=== PATIENT | female | born 1960 | race Caucasian/White ===

== ENCOUNTER → 2020-10-03 10:48 | Outpatient (CLI) | payer BC, SELFPAY ==
--- NOTE | ~2020-10-03 | MR_ITS ---
EXAMINATION: MR foot RT wo/w con DATE: 10/03/2020 11:52 INDICATION: Metatarsalgia of the right foot. Lesion of plantar nerve of the right foot. TECHNIQUE: Magnetic resonance imaging (MRI) of the right foot was performed without and with 17 mm Mu ltiHance intravenous contrast. Sequences included sagittal STIR FSE and T1-weighted FSE and short-axi s and long-axis T1-weighted FSE and T2-weighted FS FSE. Postcontrast sequences included short-axis an d long-axis T1-weighted FS FSE. COMPARISON: None FINDINGS: Bone alignment is normal. No fracture. There is severe osteoarthritis of first tarsometatar abelino joint and mild osteoarthritis of second-fifth tarsometatarsal joints. There is mild osteoarthriti s of first metatarsophalangeal joint and some of the interphalangeal joints. There is enhancing synov itis of first and second metatarsophalangeal joints. There is a skin marker dorsal to the third and f ourth metatarsals. There is a 2.5 x 0.9 x 1.4 cm multiloculated ganglion cyst between the second and third metatarsophalangeal joints. There is no Chadwick neuroma. The musculature is normal. IMPRESSION: 1. 2.5 x 0.9 x 1.4 cm multiloculated ganglion cyst between the second and third metatarsophalangeal j oints. 2. Polyarticular osteoarthritis. 3. Enhancing synovitis at the first and second metatarsophalangeal joints. Reviewed, dictated and finalized at location A. R ROLLER IMPRESSION: 1. 2.5 x 0.9 x 1.4 cm multiloculated ganglion cyst between the second and third metatarsophalangeal joints. 2. Polyarticular osteoarthritis. 3. Enhancing synovitis at the first and second metatarsophalangeal joints.
[2020-10-03 11:13] LABS: Estimated Glomerular Filt Rate > 60
== END ==
PROVIDERS: PCP Registered Nurse; Visit Provider Podiatrist Foot & Ankle Surgery
DX: G57.61 Lesion of plantar nerve, right lower limb (principal); M67.471 Ganglion, right ankle and foot; M19.071 Primary osteoarthritis, right ankle and foot; M65.9 Synovitis and tenosynovitis, unspecified
CPT/HCPCS: 73720; A9577

== ENCOUNTER → 2021-06-14 09:09 | Outpatient (CLI) | payer OTHER, SELFPAY ==
--- NOTE | ~2021-06-14 | MR_ITS ---
EXAMINATION: MR knee LT wo con DATE: 06/14/2021 09:52 INDICATION: Chronic left knee pain TECHNIQUE: Magnetic resonance imaging (MRI) of the left knee was performed without intravenous contra st. Sequences included coronal PD-weighted FSE, coronal PD-weighted FS FSE, sagittal T2-weighted FSE , sagittal PD-weighted FS FSE and axial PD weighted fat saturated FSE. COMPARISON: None. FINDINGS: Medial compartment: Longitudinal horizontal tear extending to the inferior articular surface at the middle third of the p osterior horn of the medial meniscus. Partial-thickness cartilage loss involving greater than 50% the cartilage thickness, in places likely full-thickness with underlying cortical irregularity and mild subarticular edema along the anterior weightbearing medial femoral condyle and at the anteromedial as pect of the medial tibial plateau. A severe partial thickness cartilage loss at the central weightbea ring medial femoral condyle. Lateral compartment: Lateral meniscus is normal. Articular cartilage is normal. Patellofemoral compartment: Deep full/near full-thickness chondral ulceration with tiny focus of subarticular edema at the cephal ad aspect of the medial patellar facet extending to the apical ridge. Chondral fissuring with some un derlying cortical irregularity at the inferior and medial margins of the medial trochlea. Ligaments and tendons: Anterior and posterior cruciate ligaments are normal. The fibular collateral ligament complex is norm al. There is mild thickening and mild increased signal along the proximal medial collateral ligament with small amount of fluid signal extending along both its deep and superficial margins consistent wi th recent acute low to moderate grade sprain. Patellar and distal quadriceps tendinopathy. The visual ized medial and lateral hamstring tendons as well as the iliotibial band are normal. Fluid: Small to moderate-sized left knee joint effusion. There are 5 mm and 6 mm loose osteochondral bodies within a ganglion versus para meniscal cyst extending for 2.8 cm from medial to lateral along the per iphery of the posterior horn of the medial meniscus which measures up to 1.5 x 0.8 cm maximal orthogo nal dimensions. No intra-articular loose osteochondral bodies identified. There is synovitis within a 4.2 x 1.8 x 1.2 cm Cazares's cyst which may be partially ruptured with small amount of edema extending inferiorly along the fat along the medial margin of the medial head of the gastrocnemius. Osseous/other: Normal marrow signal aside from previous noted mild subarticular edema. No fracture or pathologic mar row replacing process. IMPRESSION: 1. Likely acute low to moderate grade sprain of the proximal medial collateral ligament. 2. Longitudinal horizontal tear at the posterior horn of the medial meniscus. 3. Mild to moderate medial and mild patellofemoral compartment osteoarthritis, both with regions of h igh-grade chondromalacia. 4. Small to moderate-sized left knee joint effusion and moderate-sized Cazares's cyst. Reviewed, dictated and finalized at location A. IMPRESSION: 1. Likely acute low to moderate grade sprain of the proximal medial collateral ligament. 2. Longitudinal horizontal tear at the posterior horn of the medial meniscus. 3. Mild to moderate medial and mild patellofemoral compartment osteoarthritis, both with regions of high-grade chondromalacia. 4. Small to moderate-sized left knee joint effusion and moderate-sized Cazares's cyst.
== END ==
PROVIDERS: PCP Internal Medicine; Visit Provider Internal Medicine
DX: M17.12 Unilateral primary osteoarthritis, left knee (principal); M25.462 Effusion, left knee; M94.262 Chondromalacia, left knee; S83.242A Other tear of medial meniscus, current injury, left knee, initial encounter
CPT/HCPCS: 73721

== ENCOUNTER → 2021-07-04 15:31 | Outpatient (CLI) | payer OTHER, SELFPAY ==
--- NOTE | ~2021-07-04 | XR_ITS ---
EXAMINATION: XR chest 2V DATE: 07/04/2021 15:43 INDICATION: Encounter for preoperative cardiovascular clearance TECHNIQUE: frontal and lateral views of the chest were obtained. COMPARISON: Chest radiograph dated 03/08/2019 FINDINGS: The lungs remain clear with no focal airspace opacities, pulmonary edema, pleural effusion or pneumot horax. The cardiomediastinal silhouette is normal. Moderate thoracic spondylosis. IMPRESSION: 1. No acute cardiopulmonary disease. Reviewed, dictated and finalized at location A.
== END ==
PROVIDERS: PCP Internal Medicine; Visit Provider Internal Medicine
DX: Z01.810 Encounter for preprocedural cardiovascular examination (principal); M47.814 Spondylosis without myelopathy or radiculopathy, thoracic region
CPT/HCPCS: 71046

== ENCOUNTER 2021-10-08 09:01 | Outpatient (CLI) | payer OTHER, SELFPAY ==
--- NOTE | ~2021-10-08 | MR_ITS ---
EXAMINATION: MR brain/brain stem wo con DATE: 10/08/2021 10:11 INDICATION: Memory loss of unknown cause. TECHNIQUE: Magnetic resonance imaging (MRI) of the brain and brainstem was performed without intraven ous contrast. Sequences included sagittal and axial T1-weighted FSE, axial diffusion-weighted FS EPI, axial T2*-weighted GRE, axial T2-weighted FLAIR Propeller, and axial T2-weighted Propeller. Apparent diffusion coefficient (ADC) maps were created. COMPARISON: None. FINDINGS: There is no intracranial hemorrhage, acute infarction, or abnormal intracranial mass lesion . The ventricles are normal in size. The paranasal sinuses are clear. There are likely changes of ocu lar lens replacement surgeries. The mastoid air cells are normal. IMPRESSION: 1. Normal brain. Reviewed, dictated and finalized at location A. UCTION FINISHER IMPRESSION: 1. Normal brain.
--- NOTE | ~2021-10-08 | US_ITS ---
EXAMINATION: US carotid duplex BI DATE: 10/08/2021 09:43 INDICATION: Dizziness. Memory loss. Carotid atherosclerosis on prior cervical spine radiographs. TECHNIQUE: Grayscale, color Doppler, and pulsed Doppler images of the cervical carotid arteries were obtained. The degree of vessel stenosis is placed in one of the following categories: normal, <50%, 5 0-69%, >=70% but less than near-occlusion, near-occlusion, or total occlusion. Note that percent sten osis relative to normal distal artery lumen diameter is indirectly measured from velocity measurement s as described by Bernardo, et al. Radiology 2003; [id number]:[id number]. COMPARISON: None. FINDINGS: RIGHT: The right common carotid artery (CCA) peak systolic velocity (PSV) is 87 cm/s. The right internal car otid artery (ICA) PSV is 53 cm/s. The right ICA end-diastolic velocity (EDV) is 23 cm/s. The right IC A/CCA PSV ratio is 0.6. Grayscale and color Doppler images yield an estimate of <50% diameter reducti on from plaque in the ICA. The external carotid artery (ECA) PSV is 68 cm/s. There is antegrade flow in the right vertebral artery. LEFT: The left CCA PSV is 88 cm/s. The left ICA PSV is 100 cm/s. The left ICA EDV is 44 cm/s. The left ICA/ CCA PSV ratio is 1.1. Grayscale and color Doppler images yield an estimate of <50% diameter reduction from plaque in the ICA. The ECA PSV is 98 cm/s. There is antegrade flow in the left vertebral artery . IMPRESSION: 1. <50% stenosis in the right internal carotid artery. 2. <50% stenosis in the left internal carotid artery. Reviewed, dictated and finalized at location H. Y APPLICATOR
== END 2021-10-08 09:02 | disposition home or self-care (01) ==
LOC: ANHIMG 09:07
PROVIDERS: PCP Internal Medicine; Visit Provider Internal Medicine
DX: I65.23 Occlusion and stenosis of bilateral carotid arteries (principal)
CPT/HCPCS: 70551; 93880

== ENCOUNTER → 2021-11-08 11:48 | Outpatient (CLI) | payer OTHER, SELFPAY ==
--- NOTE | ~2021-11-08 | CT_ITS ---
EXAMINATION: CT cervical spine wo con DATE: 11/08/2021 12:06 INDICATION: Neck pain. Dizziness. TECHNIQUE: Computed tomography (CT) of the cervical spine was performed without intravenous contrast. Automated exposure control and iterative reconstruction technique were employed. The dose-length pro duct was 247.07 mGy-cm. COMPARISON: None FINDINGS: There is 5 degrees dextrocurvature of cervical spine. There is mild chronic anterior wedgin g of C4 vertebral body. Intervertebral disc heights are normal. The following disc levels are specifi janell discussed: C2-C3: There is no uncovertebral joint osteoarthritis. There is no facet joint osteoarthritis. There is no neural foraminal stenosis. There is no central canal stenosis. C3-C4: There is no uncovertebral joint osteoarthritis. There is moderate left facet joint osteoarthri tis. There is no neural foraminal stenosis. There is no central canal stenosis. C4-C5: There is no uncovertebral joint osteoarthritis. There is no facet joint osteoarthritis. There is no neural foraminal stenosis. There is no central canal stenosis. C5-C6: There is no uncovertebral joint osteoarthritis. There is no facet joint osteoarthritis. There is no neural foraminal stenosis. There is mild central canal stenosis. C6-C7: There is no uncovertebral joint osteoarthritis. There is moderate left facet joint osteoarthri tis. There is no neural foraminal stenosis. There is mild central canal stenosis. C7-T1: There is no uncovertebral joint osteoarthritis. There is moderate and severe left facet joint osteoarthritis. There is mild left neural foraminal stenosis. There is no central canal stenosis. IMPRESSION: 1. Mild cervical spondylosis. Reviewed, dictated and finalized at location A. R OPERATOR
== END ==
PROVIDERS: Visit Provider Internal Medicine
DX: R42 Dizziness and giddiness (principal); M47.812 Spondylosis without myelopathy or radiculopathy, cervical region
CPT/HCPCS: 72125

== ENCOUNTER 2022-02-27 11:10 | Outpatient (CLI) | payer OTHER, SELFPAY ==
[2022-02-27 13:34] LABS: Basophils Absolute Auto 0.1 K/mm3 (0.0-0.1); Eosinophils Absolute Auto 0.1 K/mm3 (0-0.3); Eosinophils Percent Auto 1.8 % (0-4.4); Hematocrit 44.3 % (37.0-47.0); Hemoglobin 14.7 g/dL (12.0-15.0); Immature Granulocyte Absolute 0.01 K/mm3 (0.00-0.031); Immature Granulocyte Percent A 0.2 % (0-0.5); Lymphocytes Absolute Auto 1.39 K/mm3 (0.9-3.2); Lymphocytes Percent Auto 28.3 % (18.3-44.2); Mean Corpuscular HGB Conc 33.2 g/dl (32-36); Mean Corpuscular Hemoglobin 32.4 pg (26-34); Mean Corpuscular Volume 97.6 fl (80-100); Mean Platelet Volume 8.6 fl (7.4-10.4); Monocytes Absolute Auto 0.6 K/mm3 (0.1-0.6); Monocytes Percent Auto 12.8 % (2.6-8.5); Neutrophils Absolute Auto 2.8 K/mm3 (1.3-6.7); Neutrophils Percent Auto 55.9 % (45.5-73.1); Platelet Count Result 283 k/mm3 (150-375); Red Blood Count 4.54 M/mm3 (4.2-5.4); Red Cell Distribution Width 12.1 % (11.5-14.5); White Blood Count 4.9 K/mm3 (4.5-10.0)
[2022-02-27 13:43] LABS: Albumin Level 4.7 g/dL (3.5-5.1); Anion Gap 11 mmol/L (8-16); Blood Urea Nitrogen 10 mg/dL (7-17); Calcium 9.7 mg/dL (8.4-10.2); Carbon Dioxide 30 mmol/L (22-30); Chloride 99 mmol/L (98-107); Estimated Glomerular Filt Rate > 60; Glucose 97 mg/dL (65-110); Potassium 5.3 mmol/L (3.4-5.0); Sodium 140 mmol/L (137-145); Urine Cotinine NEGATIVE
[2022-02-27 13:47] LABS: Hemoglobin A1C 5.5 % (<5.7)
== END 2022-02-27 11:11 | disposition home or self-care (01) ==
PROVIDERS: PCP Internal Medicine; Visit Provider Orthopaedic Surgery
DX: Z01.812 Encounter for preprocedural laboratory examination (principal); M17.11 Unilateral primary osteoarthritis, right knee
CPT/HCPCS: 80048; 80307; 82040; 83036; 85025; 86850; 86900; 86901; 87070

== ENCOUNTER 2022-03-06 01:21 | Day surgery (SDC) | payer OTHER, SELFPAY ==
[2022-02-27 11:28] VITALS: BMI 29.8
--- NOTE | 2022-02-27 12:06 | PC.NURSE ---
Report to the Outpatient Waiting Room, entrance under the green pavilion located off [facility], at time __1000 AM on date __03/06/22 . OR Time: _1200 PM . - You and your visitor will be asked a series of questions to screen for COVID 19 for your protection. - Only one visitor is allowed at this time. - The patient visitor is requested to leave or wait in car when not with patient. - A mask is required within the hospital. Patients may have clear liquids (water, carbonated beverages, clear teas, apple juice) until 3 hours prior to surgery with a maximum of 20 ounces. - No food from midnight until time of surgery - Infants may have breast milk until 4 hours before surgery, formula 6 hours prior to surgery. - Children will be allowed to drink immediately following surgery. If applicable, please bring a bottle or sippy cup to assist with drinking. Juice, water, soda, and popsicles are readily available. For infants on formula, please bring formula the day of surgery. Pacifiers are allowed. Take the following medications with a SIP of water the morning of surgery: ___ALPRAZOLAM,BUPROPION,PROPRANOLOL,AND VENLAFAXINE Medications to discontinue per physician ___ALL VITAMINS AND SUPPLEMENTS 3 DAYS PRE OP Date to take last dose___03/02/22 Please no make-up, nail bermudian, hairspray, perfume, deodorant, or body powder the day of surgery. No jewelry (including any body piercings) or valuables the day of surgery, leave them at home. Please take a shower or bath the night before, or the morning of, surgery with an antibacterial soap. Wear comfortable, loose fitting clothing. Children are encouraged to wear pajamas. - Jewelry must be removed prior to entering the operating room. Rings and piercings that are not removed may be cut off. - The hospital will not accept responsibility for valuables. - Please leave all valuables, including medications, at home the day of surgery. If you are going home after surgery, a licensed clamp truck driver must drive you home. - NO public transportation without another adult. - We recommend that an adult stay with you for 24 hours following discharge. - We also recommend that you do not drive, make important decision, drink alcoholic beverages, or take any drugs that were not prescribed by your health care provider for at least 24 hours after your discharge time. For Pediatric surgeries, we recommend two adults accompany the child home (only one inside the building at this time). Follow any additional instructions given to you from your surgeon. If you or anyone in your household have experienced Covid symptoms in the past week, please notify your surgeon or the nurse liaison at the phone number below for possible testing. VERBAL AND WRITTEN instructions given toPATIENT and asked if any additional questions and then verbalized understanding. Patient advised to call surgeon office or pre surgery nurse liaison [phone] if any additional questions.
[2022-02-27 12:52] VITALS: BP 124/74; PULSE 71; RESP 18; TEMP 36.7; O2SAT 98
--- NOTE | 2022-03-04 11:29 | PM.IMHP ---
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 Patient has severe arthritis medial compartment of the right knee. She has had previous arthroscopies done in the right knee in 2020. Unfortunately she did not get much relief from the arthroscopies. Her arthritis has progressed she has [id number] medial compartment. She has been taking Celebrex 200 mg daily without improvement of her symptoms. She had cortisone injection in November of this year which gave her only partial relief for about 2 weeks. She feels this point she is having significant pain in the right knee and is ready to proceed with surgery. She is felt to be good candidate for partial knee replacement and she presents today for that. Chief Complaint: Right knee medial compartment osteoarthritis. Review of Systems Review of Systems: All systems reviewed & are unremarkable except as noted in HPI and below PMFSH Social History Social History Smoking packs per day: 0.25 Smoking cigarettes per day: 5.0 Years smoked: 15 Smoking pack-years: 3.75 Smoking status: Former smoker Tobacco type: cigarettes Smoking end date: 10/13/18 Additional smoking assessment comments: DENIES ANY FORM OF TOBACCO USE Spiritual care concerns: No Meds Home Medications and Allergies Home Medications Medication Instructions Recorded Confirmed Type albuterol sulfate [Ventolin HFA] 2 puff INHALATION QID PRN 02/27/22 02/27/22 History alprazolam 0.5 mg PO PRN PRN 02/27/22 02/27/22 History atorvastatin 10 mg PO HS 02/27/22 02/27/22 History bupropion HCl 300 mg PO QAM 02/27/22 02/27/22 History celecoxib 200 mg PO DAILY 02/27/22 02/27/22 History cholecalciferol (vitamin D3) 50 mcg PO DAILY 02/27/22 02/27/22 History diclofenac sodium 4 g TOPICAL QID 02/27/22 02/27/22 History fluticasone propionate [Flovent 1 puff INHALATION BID 02/27/22 02/27/22 History HFA] meclizine 25 mg PO PRN PRN 02/27/22 02/27/22 History montelukast 10 mg PO DAILY 02/27/22 02/27/22 History omega-3 fatty acids [Fish Oil] 1,000 mg PO DAILY 02/27/22 02/27/22 History omeprazole 40 mg PO DAILY 02/27/22 02/27/22 History oxycodone-acetaminophen 1 tablet PO Q12H 02/27/22 02/27/22 History phentermine 37.5 mg PO DAILY 02/27/22 02/27/22 History propranolol 20 mg PO TID 02/27/22 02/27/22 History trazodone 150 mg PO HS 02/27/22 02/27/22 History venlafaxine 75 mg PO DAILY 02/27/22 02/27/22 History venlafaxine 150 mg PO DAILY 02/27/22 02/27/22 History Allergies Allergy/AdvReac Type Severity Reaction Status Date / Time No Known Allergies Allergy Unverified 02/27/22 11:29 Exam Narrative: 61-year-old female alert pleasant. She is 5 ft 6 in tall and 185 lb. Right knee range motion is from 2-155 degrees. She has moderate effusion. She has mild laxity to valgus stress in the right knee. Paris's showed 1+ laxity with solid endpoint. Hip range of motion is full without discomfort. Normal quad strength. Moderately severe tenderness over the medial joint line. 2+ dorsalis pedis and posterior artery pulse palpable. Normal sensation right lower extremity. No edema in lower extremity. Resp: Auscultation: clear to auscultation bilaterally Cardio: Rate: regular rate Rhythm: regular rhythm Assessment and Plan Additional Plan 61-year-old female who has severe medial compartment osteoarthritis. Again she feels this is bothering her on a regular basis and is ready to proceed with surgery. Surgical procedure well as the risks and complications were discussed in detail all questions were answered and we will proceed. Patient will see her primary care doctor for pre-surgical clearance. She will avoid any aspirin or ibuprofen products 1 week prior to surgery. She will continue with her Celebrex up and through the time fishman
[2022-03-06] VITALS (12 sets, daily range): BP systolic 99–132; BP diastolic 55–77; PULSE 88–114; RESP 12–98; TEMP 36.5–36.8; O2SAT 92–100
--- NOTE | ~2022-03-06 | XR_ITS ---
EXAMINATION: XR surgery orthopedic DATE: 03/06/2022 16:20 INDICATION: Right knee medial unicompartmental arthroplasty. TECHNIQUE: 2 fluoroscopic images of the right knee were obtained during procedure performed by Dr. Lion lenz. Radiologist was not present for the imaging or procedure. The amount of fluoroscopy time used during this procedure was 0.8 minutes. COMPARISON: None. FINDINGS: Images demonstrate osteotomy at the medial tibial plateau with placement of a trial tibial tray. A gu dann pin is seen in the underlying medial tibial plateau. Expected small amount of intra-articular gas . No fracture identified. IMPRESSION: 1. Fluoroscopy utilized during a medial unicompartmental arthroplasty of the right knee. See procedur e note for further detail. Reviewed, dictated and finalized at location B. IMPRESSION: 1. Fluoroscopy utilized during a medial unicompartmental arthroplasty of the ri ght knee. See procedure note for further detail.
--- NOTE | ~2022-03-06 | XR_ITS ---
EXAMINATION: XR knee RT 2V DATE: 03/06/2022 16:17 CDT INDICATION: Right partial knee arthroplasty TECHNIQUE: 2 views right knee FINDINGS: There is a right medial unicompartmental knee arthroplasty in expected position. Subcutane ous gas with fluid and air in the joint are consistent with recent surgery. No evidence of periprosth etic fracture. IMPRESSION: 1. Recent right medial unicompartmental knee arthroplasty. Reviewed, dictated and finalized at location A.
[2022-03-06] MEDS: LACTATED RINGERS 1,000 ML 30 ML IV CONT ×2 (10:50→16:01)
--- NOTE | 2022-03-06 11:24 | WPDANESEPPF ---
Anes - Initial Pre Proc Eval Procedure: Operation Date: 03/06/22 12:00 Proposed Procedures p Right [place] Partial Knee Arthroplasty versus Possible Total Knee Arthroplasty - Adam Morrison MD Date/Time: 03/06/22 11:24 Surgeon: Adam Morrison MD Pre Op Diagnosis: Right Knee Medial Compartment Osteoarthritis Patient Data Age: 61 Gender: F Height: 1.68 m Weight: 83.8 kg Last Vital Signs Temp 36.7 C 02/27/22 12:52 Pulse 71 02/27/22 12:52 Resp 18 02/27/22 12:52 BP 124/74 02/27/22 12:52 Pulse Ox 98 02/27/22 12:52 O2 Del Method Room Air 02/27/22 12:52 Allergies Allergy/AdvReac Type Severity Reaction Status Date / Time No Known Allergies Allergy Unverified 03/06/22 10:33 Home Medications Medication Instructions Recorded Confirmed Type albuterol sulfate 90 mcg/actuation 2 puff inhalation QID PRN 02/27/22 03/06/22 History aerosol inhaler (Ventolin HFA) Shortness Of Breath alprazolam 0.5 mg tablet 0.5 mg PO PRN PRN Anxiety 02/27/22 03/06/22 History atorvastatin 20 mg tablet 10 mg PO HS 02/27/22 03/06/22 History bupropion HCl 300 mg 24 hr tablet, 300 mg PO QAM 02/27/22 03/06/22 History extended release celecoxib 200 mg capsule 200 mg PO DAILY 02/27/22 03/06/22 History cholecalciferol (vitamin D3) 50 50 mcg PO DAILY 02/27/22 03/06/22 History mcg (2,000 unit) tablet diclofenac sodium 1 % topical gel 4 g topical QID 02/27/22 03/06/22 History fluticasone propionate 110 1 puff inhalation BID 02/27/22 03/06/22 History mcg/actuation HFA aerosol inhaler (Flovent HFA) meclizine 25 mg tablet 25 mg PO PRN PRN Dizziness 02/27/22 03/06/22 History montelukast 10 mg tablet 10 mg PO DAILY 02/27/22 03/06/22 History omega-3 fatty acids 1,000 mg PO DAILY 02/27/22 03/06/22 History omeprazole 40 mg capsule,delayed 40 mg PO DAILY 02/27/22 03/06/22 History release oxycodone-acetaminophen 5 mg-325 1 tablet PO Q12H PAIN 02/27/22 03/06/22 History mg tablet phentermine 37.5 mg tablet 37.5 mg PO DAILY 02/27/22 03/06/22 History propranolol 20 mg tablet 20 mg PO TID TREMORS 02/27/22 03/06/22 History trazodone 150 mg tablet 150 mg PO HS 02/27/22 03/06/22 History venlafaxine 150 mg 150 mg PO DAILY 02/27/22 03/06/22 History capsule,extended release 24 hr venlafaxine 75 mg capsule,extended 75 mg PO DAILY 02/27/22 03/06/22 History release 24 hr Patient hx anesthesia problems: none Family hx anesthesia problems: none Results Review: All pre-operative results and documents have been reviewed as part of the pre-operative evaluation. [facility] Past Medical History Medical History (Updated 03/06/22 @ 11:25 by Valentín Cannon MD) Asthma Obesity Surgical History Surgical History (Updated 03/06/22 @ 11:25 by Valentín Cannon MD) H/O arthroscopic knee surgery History of shoulder surgery Social History Social History Smoking packs per day: 0.25 Smoking cigarettes per day: 5.0 Years smoked: 15 Smoking pack-years: 3.75 Smoking status: Former smoker Tobacco type: cigarettes Smoking end date: 10/13/18 Additional smoking assessment comments: DENIES ANY FORM OF TOBACCO USE Living arrangements: with family Spiritual care concerns: No Anes - Eval Final PreProcedure Day of Procedure 03/06/22 11:24 Patient weight: obese Heart: regular rate and rhythm Lungs: clear to auscultation Airway: Mallampati scale class II Neurological: alert and oriented Last oral intake: >/= 8 hours ASA classification: III Emergent: no Anesthetic plan: proceed Anesthesia type and monitoring: general LMA and standard monitoring Results Review: All pre-operative results and documents have been reviewed as part of the pre-operative evaluation. Informed Consent: The patient's anesthetic plan and its attendant risks and benefits were discussed with the patient/family/POA. Questions were solicited and answers provided to the satisfacti
[2022-03-06] MEDS: TRANEXAMIC ACID 1,000MG/ISO100 1,000 MG/100 ML BAG 200 MG IVPB (11:32)
--- NOTE | 2022-03-06 12:05 | SUR.PREOP ---
1204-CONTACTED [facility] OR PROJECT COORDINATOR RE: DR. FERRIS TIME OF ARRIVAL, SHE STATES ROOM DELAYED AND SHE INFORMED DR. FERRIS 1230 START. 1205-INFORMED PT AND OF ABOVE DELAY.
--- NOTE | 2022-03-06 12:17 | WPDHPUPDATE1 ---
History and Physical Update Update Date/Time: 03/06/22 12:17 History and Physical has been reviewed, including an updated exam of the patient. There are NO changes in the patient's condition. Risks, benefits, and alternatives have been discussed and questions answered. Patient agrees to proceed with procedure. Patient also would like a cortisone shot in left knee. Dx: OA BOTH knees.
[2022-03-06] MEDS: ceFAZolin 2 GM/D5W 50 ML 2 GM/50 ML BAG IVPB (12:28)
[2022-03-06] MEDS: ceFAZolin SODIUM 1 GM VIAL 3 GM IRRIGATION (13:26)
[2022-03-06] MEDS: methylPREDNISolone ACETATE 80 MG/ML VIAL IM (13:28)
[2022-03-06] MEDS: TRANEXAMIC ACID 1,000 MG/10 ML AMPUL 1000 MG IV PUSH (15:04)
[2022-03-06] MEDS: ceFAZolin SODIUM 1 GM VIAL IV PUSH (15:05)
--- NOTE | 2022-03-06 16:14 | W.PM.PROC2 ---
Procedure Note - Detailed Date of Procedure 03/06/22 Pre-op Diagnosis Right Knee Medial Compartment Osteoarthritis, left knee osteoarthritis Post-op Diagnosis Same Procedure Performed [place] medial compartment partial knee replacement right knee, cortisone injection left knee Surgeon Adam Morrison MD Covering Machine Operator Helper Arnie Rayo Anesthesia General Description of Procedure Patient was brought to the operating room and general anesthesia was administered. A time-out was performed and after ChloraPrep prep, 80 mg of Depo-Medrol and 3 cc 1% lidocaine were injected into the left knee without difficulty. The right knee was then positioned on the [place] thigh bentley and the tourniquet high in the thigh the leg dangling over the side of the bed and was prepped draped usual fashion. She received 2 g Ancef weight based vancomycin 1 g of tranexamic acid preoperatively. Limb was exsanguinated tourniquet elevated to 250 mmHg. A 3 in longitudinal incision was made from the medial margin of the superior patella to medial to the tibial tubercle and a median parapatellar arthrotomy was made line with the incision. A 2 cm split in the vastus medialis was performed. The articular surface on the lateral femoral condyle looked normal ACL looked normal there was complete bony eburnation on the distal femoral articular surface and anteromedial tibial plateau. Anterior horn of medial meniscus was removed and anteromedial tibial plateau exposed. Osteophytes removed from around the intercondylar notch and inferior superior poles of the patella and around the medial femoral condyle. There was chondromalacia of the medial facet of patella. The articular cartilage in the trochlea looked perfect. The small femoral spoon showed that this was the proper size for the femur and we placed the 3 mm spoon and 2 this attached the 3 mm G clamp placing the tibial guide to remove tibial bone at 7? of posterior slope and this was pinned in position while the link to the G clamp. The tibial wafer was removed. Is centrally fit line to line anterior to posterior medial to lateral for the size B tibia. We placed the size B tibia on the tibial plateau and brought in the mini C-arm to image the fit and there was about 2 mm of overhang in part to to the obliquity of the vertical wall cut and I reapplied the tibial cutting guide and carefully removed about a mm and half of bone from the vertical wall cut to make it perfectly vertical and flat with a file and on Kailash I Zing with the mini C-arm the size B trial fit perfectly line to line all the way around the medial tibial plateau. Next a guide ike was inserted up the femoral canal and we inserted the small femoral drill guide initially set at 3 mm but this was a bit loose in the size 4 fit better was not too snug. This was linked to the intramedullary ike and centered over the center line of the medial femoral condyle and the 2 holes drilled. This fit line to line medial to lateral with a small. The posterior femoral cut was made and the 0 spigot placed and the distal femur milled with a 0. On trialing at 100? the 3 was a little loose but the 4 was slightly tighter than usual. At 20? of extension with mild valgus stress the 1 Feeler seemed appropriate therefore we removed 2 mm of bone with the 2 mm spigot the distal femur and trialed again. This time the 4 Feeler was the appropriate thickness at 100? of flexion. The 4 was too tight in extension but the 3 was just right in extension therefore the 3 mm spigot was placed on the distal femur and the additional 1 mm milled. The colic of bone removed and on trialing we had excellent balance with both the 4 Feeler and we placed the 4 bearing trial and was appropriate wiggle at 100? and 20?. We did trialed the 5 Feeler but it was too tight to insert in flexion. The impingement guide for the small was placed the anterior bone milled and posteriorly there was no medial osteophytes removed. I did remove a little
[2022-03-06] MEDS: ACETAMINOPHEN 325 MG TABLET 650 MG PO (17:21)
[2022-03-06] MEDS: SENNA/DOCUSATE SODIUM TABLET 2 TAB PO (17:21)
[2022-03-06] MEDS: oxyCODONE HCL (*CRX) 5 MG TAB IR PO ×4 (17:21→21:25)
[2022-03-06] MEDS: SODIUM CHLORIDE 0.9% IV 1,000 ML 125 ML IV CONT (17:22)
[2022-03-06] MEDS: MORPHINE SULFATE (*CRX) 2 MG/ML INJ IV PUSH ×4 (17:49→22:36)
[2022-03-06] MEDS: CYCLOBENZAPRINE HCL 10 MG TABLET PO (17:49)
--- NOTE | 2022-03-06 17:52 | PC.NURSE ---
called MD Russell, pt 07/22 jumping out of bed in pain, tearful, MD Russell ordered once toradol 15 mg, flexiril q8hrs prn, and morphine 2 mg q1h of breakthrough pain relief.
[2022-03-06] MEDS: KETOROLAC 15 MG/ML VIAL (*BKC) IV PUSH (17:55)
[2022-03-06] MEDS: PROPRANOLOL HCL 20 MG TABLET PO (18:17)
[2022-03-06] MEDS: traZODone HCL 50 MG TABLET 150 MG PO (21:25)
[2022-03-06] MEDS: ATORVASTATIN 10 MG TABLET PO (21:25)
[2022-03-07] VITALS (7 sets, daily range): BP systolic 106–131; BP diastolic 67–92; PULSE 95–105; RESP 14–18; TEMP 36.4–36.6; O2SAT 92–97
[2022-03-07] MEDS: ACETAMINOPHEN 325 MG TABLET 650 MG PO ×3 (00:43→11:30)
[2022-03-07] MEDS: CYCLOBENZAPRINE HCL 10 MG TABLET PO (01:03)
[2022-03-07] MEDS: oxyCODONE HCL (*CRX) 5 MG TAB IR PO ×6 (01:03→12:12)
--- NOTE | 2022-03-07 03:24 | PC.NURSE ---
Pt experiencing O2 desat 85-90% while sleeping at this time. Pt currently on 2L NC w/ continuous capnography. Pt recovers to >90% when woken and encouraged to deep breath.
[2022-03-07 05:34] LABS: Basophils Percent Auto 0.1 % (0.2-1.2); Hematocrit 37.6 % (37.0-47.0); Hemoglobin 12.7 g/dL (12.0-15.0); Immature Granulocyte Absolute 0.07 K/mm3 (0.00-0.031); Immature Granulocyte Percent A 0.5 % (0-0.5); Lymphocytes Absolute Auto 0.51 K/mm3 (0.9-3.2); Lymphocytes Percent Auto 3.8 % (18.3-44.2); Mean Corpuscular HGB Conc 33.8 g/dl (32-36); Mean Corpuscular Hemoglobin 32.6 pg (26-34); Mean Corpuscular Volume 96.4 fl (80-100); Mean Platelet Volume 9.1 fl (7.4-10.4); Monocytes Absolute Auto 0.7 K/mm3 (0.1-0.6); Neutrophils Absolute Auto 12.2 K/mm3 (1.3-6.7); Neutrophils Percent Auto 90.6 % (45.5-73.1); Platelet Count Result 256 k/mm3 (150-375); Red Cell Distribution Width 12.1 % (11.5-14.5); White Blood Count 13.5 K/mm3 (4.5-10.0)
[2022-03-07 05:46] LABS: Anion Gap 8 mmol/L (8-16); Blood Urea Nitrogen 10 mg/dL (7-17); Calcium 8.8 mg/dL (8.4-10.2); Carbon Dioxide 26 mmol/L (22-30); Chloride 103 mmol/L (98-107); Estimated CRCL calculation 93 ml/min; Estimated Glomerular Filt Rate > 60; Glucose 178 mg/dL (65-110); Potassium 4.3 mmol/L (3.4-5.0); Sodium 137 mmol/L (137-145)
--- NOTE | 2022-03-07 07:05 | PM.PNORT ---
Progress Note: A&P Assessment and Plan (1) Primary osteoarthritis of knees, bilateral: Code(s): M17.0 - Bilateral primary osteoarthritis of knee Status: Acute Assessment and Plan: Patient is postoperative day 1. After [place] partial knee replacement medial compartment right knee and cortisone injection left. She is afebrile stable vital signs. Her labs look fine. Hemoglobin is 12.7 creatinine 0.6. She had severe pain that started after coming up from the recovery room. I saw her in the recovery room she was quite comfortable. She told me that it was pain in her right buttock with radiation down the leg. She has a history of sciatica and she felt it was consistent with sciatic pain. Her knee was sore in the back for knee also. She does not feel much discomfort in the front of the knee likely due to the periarticular block still in effect. She is much more comfortable this morning. On exam she has normal sensation in her right foot normal motor function. The Mepilex dressing is dry. Minimal swelling over the front of the knee. No swelling the lower leg. She feels she will be ready to go home later today after physical therapy will make plans to discharge her. I did talk to her at length about avoidance of using the alprazolam while she is taking oxycodone. I carefully explained to her and she voiced thorough understanding of the fact that combining the Xanax and oxycodone can cause respiratory depression and . We will plan to use the lower dose of Tylenol because of her history of steatohepatitis and I am going to give her a prescription for Flexeril as well. She may have more difficulties with pain control due to the fact that she was taking narcotics before her knee replacement and does have anxiety depression. I have discussed with her that if she avoid sitting in the chair as much as possible and avoids excessive swelling in the right knee her pain control will be easier. Subjective Subjective Date/Time Seen: 03/07/22 07:05 Objective Data Vital Signs Vital Signs: Vital Signs - 24 hr 03/06/22 10:34 03/06/22 16:01 03/06/22 16:15 Temperature 36.5 C 36.7 C Pulse Rate 88 94 89 Respiratory Rate 20 12 14 Blood Pressure 121/72 99/58 L 107/70 Pulse Oximetry 94 93 96 Oxygen Delivery Room Air Simple Face Mask Simple Face Mask Oxygen Flow Rate 8 8 03/06/22 16:30 03/06/22 16:45 03/06/22 18:17 Temperature Pulse Rate 110 H 113 H 99 Respiratory Rate 13 14 Blood Pressure 112/72 107/72 Pulse Oximetry 96 92 Oxygen Delivery Simple Face Mask Nasal Cannula Oxygen Flow Rate 8 2 03/06/22 18:17 03/06/22 17:10 03/06/22 17:25 Temperature 36.5 C 36.8 C Pulse Rate 114 H 111 H Respiratory Rate 20 98 H Blood Pressure 111/67 111/55 L Pulse Oximetry 98 94 99 Oxygen Delivery Nasal Cannula Oxygen Flow Rate 2 03/06/22 17:55 03/06/22 18:55 03/06/22 19:57 Temperature 36.8 C 36.8 C Pulse Rate 99 107 H 103 H Respiratory Rate 20 20 16 Blood Pressure 132/77 118/70 Pulse Oximetry 100 98 96 Oxygen Delivery Nasal Cannula Oxygen Flow Rate 2 03/07/22 00:39 03/07/22 05:29 Temperature 36.6 C 36.4 C Pulse Rate 105 H 104 H Respiratory Rate 18 14 Blood Pressure 124/73 106/67 Pulse Oximetry 93 92 Oxygen Delivery Oxygen Flow Rate Intake/Output Intake/Output: Intake & Output 03/04/22 03/05/22 03/06/22 03/07/22 23:59 23:59 23:59 23:59 Intake Total 800 1550 Output Total 600 Balance 800 950 Meds/Results Medications: Active Medications Generic Name Dose Route Start Last Admin Trade Name Freq PRN Reason Stop Dose Admin Acetaminophen 650 mg 03/06/22 18:00 03/07/22 05:14 Acetaminophen 325 Mg Tablet PO 650 mg Q6H ABHISHEK Administration Albuterol 2 puff 03/06/22 16:57 Albuterol Sulfate (*Sp) Aerosol 1 Puff INHALATION QID PRN Shortness Of Breath Apixaban 2.5 mg 03/07/22 09:00 Apixaban 2.5 Mg Tablet PO 03/18/22 21:01 Q12HR SC
--- NOTE | 2022-03-07 07:41 | PM.DS ---
DS: Admitting Diagnosis Discharge Date 03/07/2022 Admitting Diagnosis Osteoarthritis both knees DS: Discharge Diagnosis Discharge Diagnosis Plan Patient underwent a partial knee replacement right knee and a cortisone injection into the left knee on 03/07/2022 and is to be discharged today. DS: Summary Hospital Course Reason for hospitalization: Patient had an uneventful hospitalization other than rather severe pain developing yesterday afternoon due to sciatica exacerbation which has resolved. Hospital Course: Patient had uneventful hospital course other than severe pain yesterday afternoon due to sciatica symptoms which have since resolved. Time Spent with Patient Time attestation: Total time spent providing and/or coordinating discharge services: DS: Data Data Completed and Pending Labs on day of discharge: Labs from last 24 hours 03/07/22 03/07/22 05:03 05:03 WBC 13.5 H RBC 3.90 L Hgb 12.7 Hct 37.6 MCV 96.4 MCH 32.6 MCHC 33.8 RDW 12.1 Plt Count 256 MPV 9.1 Immature Gran % (Auto) 0.5 Neut % (Auto) 90.6 H Lymph % (Auto) 3.8 L [place] % (Auto) 5.0 Eos % (Auto) 0.0 Baso % (Auto) 0.1 L Lymph # (Auto) 0.51 L [place] # (Auto) 0.7 H Eos # (Auto) 0.0 Baso # (Auto) 0.0 Abs Immat Gran (auto) 0.07 H Absolute Neuts (auto) 12.2 H Absolute Nucleated RBC 0.0 Nucleated RBC % 0.0 Sodium 137 Potassium 4.3 Chloride 103 Carbon Dioxide 26 Anion Gap 8 BUN 10 Creatinine 0.60 L Estim Creat Clear Calc 93 Estimated GFR > 60 Glucose 178 H Calcium 8.8 Discharge Plan Discharge Patient Disposition: Home, Self-Care Discharge Instructions: ADAM MORRISON M.D [facility], [address] [address] POST-OPERATIVE DISCHARGE INSTRUCTIONS PARTIAL KNEE ARTHROPLASTY 1. When resting, lie on back with leg elevated above heart to minimize swelling. Significant swelling could indicate a blood clot and if this occurs call the office (or go to the ER) to have a venous ultrasound. Since it is not possible to have the knee elevated above the heart sitting in a chair, sitting in a chair will result in excessive swelling in the knee which will cause more pain and difficulty with stiffness. Ice will not reduce the swelling, only elevation will reduce the swelling. 2. Do exercise 5 times a day. 3. Do not sit with leg down except for meals. 4. Wound Care: Nursing will give additional dressings at discharge. Patient to change dressing at home 1 week from surgery, then maintain until seen in office. 5. May shower with dressing in place. 6. Practice walking as normally as possible weight-bearing as tolerated on the right leg using a walker mainly for balance. Regarding Xanax, since she only take a couple of doses a week, you should tolerate stopping a completely without withdrawal. It is necessary to strictly avoid taking the Xanax while taking oxycodone as the combination can cause excessive respiratory depression and . Stand Alone Forms: General Discharge Instructions Follow-up/Referrals: Adam Morrison MD [Physician] - Discharge Medications: New cyclobenzaprine 10 mg Tablet 10 mg PO Q8H PRN (Reason: Muscle Spasm) Qty: 50 0RF acetaminophen [Mapap (acetaminophen)] 325 mg Tablet 650 mg PO Q6H Qty: 60 0RF polyethylene glycol 3350 [Miralax] 17 gram Powder In Packet 17 g PO QAM Qty: 30 0RF sennosides-docusate sodium [Senokot-S] 8.6-50 mg Tablet 2 tab PO BID Qty: 120 0RF celecoxib [Celebrex] 100 mg Capsule 100 mg PO DAILY@0800 Qty: 13 0RF oxycodone 5 mg Tablet 5 mg PO Q4H PRN (Reason: Pain Rated 4-10) Qty: 50 0RF Rx Instructions: May take 1 or 2 tablets every 4 hours as needed. Eliquis 2.5 mg Tablet 2.5 mg PO Q12HR Qty: 27 0RF Continued phentermine 37.5 mg tablet 37.5 mg PO DAILY propranolol 20 mg tablet 20 mg PO
[2022-03-07] MEDS: CELECOXIB 100 MG CAPSULE PO (09:02)
[2022-03-07] MEDS: MONTELUKAST SODIUM 10 MG TABLET PO (09:02)
[2022-03-07] MEDS: polyethylene glycoL 3350 17 GM POWD.PACK PO (09:02)
[2022-03-07] MEDS: CHOLECALCIFEROL 1,000 UNITS TABLET 2000 UNITS PO (09:03)
[2022-03-07] MEDS: buPROPion HCL XL (24 HR) 150 MG TABCR 300 MG PO (09:03)
[2022-03-07] MEDS: VENLAFAXINE HCL XR 75 MG CAP.ER.24H 225 MG PO (09:03)
[2022-03-07] MEDS: SENNA/DOCUSATE SODIUM TABLET 2 TAB PO (09:03)
[2022-03-07] MEDS: PROPRANOLOL HCL 20 MG TABLET PO ×2 (09:03→12:11)
[2022-03-07] MEDS: PANTOPRAZOLE 40 MG TABLET PO (09:04)
[2022-03-07] MEDS: APIXABAN 2.5 MG TABLET PO (09:04)
[2022-03-07] MEDS: FLUTICASONE PROP 110 MCG INHALER 12 GM (*SP) 1 PUFF INHALATION (09:20)
== END 2022-03-07 14:29 | disposition home or self-care (01) ==
LOC: ANHSURGERY 10:22 → ANH2MED 16:59
PROVIDERS: PCP Internal Medicine; Visit Provider Orthopaedic Surgery
PROC: (CPT 27447; principal; 2022-03-06 12:00)
DX: M17.0 Bilateral primary osteoarthritis of knee (principal); G89.18 Other acute postprocedural pain; J45.909 Unspecified asthma, uncomplicated; K75.81 Nonalcoholic steatohepatitis (NASH); E66.09 Other obesity due to excess calories; Z68.29 Body mass index [BMI] 29.0-29.9, adult; Z79.51 Long term (current) use of inhaled steroids; Z87.891 Personal history of nicotine dependence
CPT/HCPCS: 27446; 20610; 36415; 73560; 80048; 80307; 82040; 83036; 85025; 86850; 86900; 86901; 87070; 94640; 97110; 97116; 97161; 97165; 97535; A9270; C1713; C1776; J0171; J0330; J0690; J1040; J1100; J1170; J1885; J2250; J2270; J2405; J2704; J2795; J3010; J3370; J7030; J7120

== ENCOUNTER → 2022-05-09 16:54 | Outpatient (CLI) | payer OTHER, SELFPAY ==
--- NOTE | ~2022-05-09 | MR_ITS ---
EXAMINATION: MR knee LT wo con DATE: 05/09/2022 17:35 INDICATION: Left knee pain TECHNIQUE: Magnetic resonance imaging (MRI) of the left knee was performed without intravenous contra st. Sequences included coronal PD-weighted FSE, coronal PD-weighted FS FSE, sagittal T2-weighted FSE , sagittal PD-weighted FS FSE and axial PD weighted fat saturated FSE. COMPARISON: None. FINDINGS: Medial compartment: Medial extrusion of the medial meniscal body. There is a longitudinal horizontal tear extending to th e intra-articular surface along the inner third of the posterior horn of the medial meniscus. There i s a region of full full-thickness cartilage loss with subtle remodeling of the articular cortex at th e anteromedial aspect of the medial tibial plateau. Additional extensive full and near full-thickness cartilage loss along the anterior to central weightbearing medial femoral condyle with minimal scatt ered cortical irregularity. Few foci of mild subarticular edema-like signal change along the region o f cartilage loss at the medial tibial plateau and and medial femoral condyle. Small marginal osteophy serene are present. Additionally there is small heterotopic ossicle versus loose osteochondral body appe aring 3-4 mm in the orthogonal medial to lateral and craniocaudal planes. Lateral compartment: Lateral meniscus is normal. Articular cartilage is normal. Patellofemoral compartment: Full/near full-thickness chondral ulceration at the lateral aspect of the medial patellar facet exten ding to the apical ridge. Partial-thickness chondral fissuring at the remainder of the more medial pa tellar facet as well as along the medial side of the lateral patellar facet. Chondral ulceration and deep fissuring with mild underlying cortical irregularity at the caudal aspect of the medial trochlea . Ligaments and tendons: Anterior and posterior cruciate ligaments are normal. Mild thickening of the proximal medial and filiberto ateral ligament without increased signal suggesting mild scarring related to chronic sprain. The fibu lar collateral ligament complex is normal. Mild tendinopathy at the distal quadriceps tendon and prox imal patellar tendon. The visualized medial and lateral hamstring tendons as well as the iliotibial b and are normal. Fluid: Moderate-sized left knee joint effusion. Cluster of a few loose osteochondral bodies at the recess po sterior to the posterior horn of the medial meniscus. Stable small heterotopic ossicle versus loose o steochondral body along Hoffa's fat pad at the inferior margin of the patella. Osseous/other: Normal marrow signal aside from previous noted small foci of subarticular edema-like signal change. N o fracture or pathologic marrow replacing process. IMPRESSION: 1. Longitudinal horizontal tear at the posterior horn of the medial meniscus with extrusion of the me dial meniscal body. 2. Severe osteoarthritis with extensive high-grade chondromalacia in the medial compartment. 3. Mild patellofemoral osteoarthritis with smaller regions of high-grade chondromalacia at the medial talar facet and medial trochlea. 4. Mild tendinopathy of the proximal patellar and distal quadriceps tendons. 5. Moderate-sized left knee joint effusion. Reviewed, dictated and finalized at location A. IMPRESSION: 1. Longitudinal horizontal tear at the posterior horn of the medial meniscus wi th extrusion of the medial meniscal body. 2. Severe osteoarthritis with extensive high-grade chondromalacia in the medial compartment. 3. Mild patellofemoral osteoarthritis with smaller regions of high-grade chondr omalacia at the medial talar facet and medial trochlea. 4. Mild tendinopathy of the proximal patellar and distal quadriceps tendons. 5. Moderate-sized
== END ==
PROVIDERS: PCP Internal Medicine; Visit Provider Orthopaedic Surgery
DX: M25.562 Pain in left knee (principal); S83.242A Other tear of medial meniscus, current injury, left knee, initial encounter; M17.12 Unilateral primary osteoarthritis, left knee; M94.262 Chondromalacia, left knee; M76.52 Patellar tendinitis, left knee; M25.462 Effusion, left knee
CPT/HCPCS: 73721

== ENCOUNTER 2022-06-24 11:23 | Outpatient (CLI) | payer OTHER, SELFPAY ==
--- NOTE | 2022-06-24 12:12 | ECG_ITS ---
Measurements Intervals [place] Rate: 79 P: 44 ID: [id number] QRS: 44 QRSD: 88 T: 58 QT: 361 QTc: 415 Interpretive Statements SINUS RHYTHM BASELINE ARTIFACT- I, II, III, AVR, AVL, AVF, V4-V6 NORMAL ECG NO PREVIOUS ECG AVAILABLE FOR COMPARISON Electronically Signed On 06-24-2022 12:43:48 CDT by Phil Finn D.O.
[2022-06-24 12:56] LABS: Basophils Absolute Auto 0.1 K/mm3 (0.0-0.1); Basophils Percent Auto 1.1 % (0.2-1.2); Eosinophils Absolute Auto 0.1 K/mm3 (0-0.3); Eosinophils Percent Auto 1.7 % (0-4.4); Hematocrit 44.8 % (37.0-47.0); Hemoglobin 15.2 g/dL (12.0-15.0); Immature Granulocyte Absolute 0.01 K/mm3 (0.00-0.031); Immature Granulocyte Percent A 0.2 % (0-0.5); Lymphocytes Absolute Auto 1.49 K/mm3 (0.9-3.2); Mean Corpuscular HGB Conc 33.9 g/dl (32-36); Mean Corpuscular Hemoglobin 31.4 pg (26-34); Mean Corpuscular Volume 92.6 fl (80-100); Mean Platelet Volume 9.4 fl (7.4-10.4); Monocytes Absolute Auto 0.5 K/mm3 (0.1-0.6); Monocytes Percent Auto 11.2 % (2.6-8.5); Neutrophils Absolute Auto 2.5 K/mm3 (1.3-6.7); Neutrophils Percent Auto 53.8 % (45.5-73.1); Platelet Count Result 300 k/mm3 (150-375); Red Blood Count 4.84 M/mm3 (4.2-5.4); White Blood Count 4.7 K/mm3 (4.5-10.0)
[2022-06-24 13:06] LABS: Urine Cotinine NEGATIVE
[2022-06-24 13:08] LABS: Albumin Level 4.8 g/dL (3.5-5.1); Anion Gap 11 mmol/L (8-16); Blood Urea Nitrogen 11 mg/dL (7-17); Calcium 9.4 mg/dL (8.4-10.2); Carbon Dioxide 29 mmol/L (22-30); Chloride 99 mmol/L (98-107); Estimated Glomerular Filt Rate > 60; Glucose 108 mg/dL (65-110); Potassium 4.7 mmol/L (3.4-5.0); Sodium 139 mmol/L (137-145)
[2022-06-24 13:09] LABS: Hemoglobin A1C 5.6 % (<5.7)
== END 2022-06-24 11:24 | disposition home or self-care (01) ==
LOC: ANHSURGERY 11:27
PROVIDERS: PCP Internal Medicine; Visit Provider Orthopaedic Surgery
DX: Z01.818 Encounter for other preprocedural examination (principal); M17.12 Unilateral primary osteoarthritis, left knee
CPT/HCPCS: 80048; 80307; 82040; 83036; 85025; 86850; 86900; 86901; 87070; 93005

== ENCOUNTER 2022-11-20 10:50 | Outpatient (CLI) | payer OTHER, SELFPAY ==
--- NOTE | ~2022-11-20 | US_ITS ---
EXAMINATION: US venous doppler [facility] DATE: 11/20/2022 12:00 INDICATION: Left lower limb pain. TECHNIQUE: Grayscale ultrasound images without and with compression and Doppler ultrasound images of the left lower extremity veins were obtained. COMPARISON: None. FINDINGS: The visualized portions of left common femoral vein, profunda (deep) femoral vein, femoral vein, popl iteal vein, peroneal veins, posterior tibial veins, and greater saphenous vein outflow are patent. Th ere is a small Cazares's cyst. IMPRESSION: 1. No deep venous thrombosis. 2. Small left Cazares's cyst. Reviewed, dictated and finalized at location A. PRIOR
== END 2022-11-20 10:51 | disposition home or self-care (01) ==
PROVIDERS: PCP Internal Medicine; Visit Provider Orthopaedic Surgery
DX: R60.0 Localized edema (principal); M71.22 Synovial cyst of popliteal space [Baker], left knee
CPT/HCPCS: 93971

== ENCOUNTER → 2022-12-13 11:57 | Outpatient (CLI) | payer OTHER, SELFPAY ==
--- NOTE | ~2022-12-13 | MM_ITS ---
EXAMINATION: MM screening mere BI w felipe HISTORY: Screening TECHNIQUE: Craniocaudal and mediolateral oblique 3-D tomosynthesis images were obtained and synthetic 2-D images were generated. CAD analysis was submitted and interpreted. COMPARISON: Comparison to multiple prior studies sequentially, with oldest reviewed study dated 11/04. BREAST PARENCHYMAL COMPOSITION: There are scattered areas of fibroglandular density. FINDINGS: There is no evidence of suspicious mass, calcification, or architectural distortion to sugg est malignancy in either breast. There has been no suspicious interval change. IMPRESSION: 1. No mammographic evidence of malignancy. 2. Recommend routine screening mammography in one year. BI-RADS Category 1: Negative Reviewed, dictated and finalized at location B. T PLANNER
== END ==
PROVIDERS: PCP Internal Medicine; Visit Provider Internal Medicine
DX: Z12.31 Encounter for screening mammogram for malignant neoplasm of breast (principal)
CPT/HCPCS: 77063; 77067

== ENCOUNTER → 2023-08-14 15:04 | Outpatient (CLI) | payer OTHER, SELFPAY ==
--- NOTE | ~2023-08-14 | MR_ITS ---
EXAMINATION: MR lumbar spine wo con DATE: 08/14/2023 15:48 INDICATION: Chronic midline low back pain. Left-sided sciatica. TECHNIQUE: Magnetic resonance imaging (MRI) of the lumbar spine was performed without intravenous con trast. Sequences included sagittal T2-weighted FSE, sagittal T2-weighted FS FSE, sagittal T1-weighted FSE, and axial T2-weighted FSE. COMPARISON: None FINDINGS: There is 10 degrees levoscoliosis of lumbar spine. There is 3 mm retrolisthesis of L5 on S1 . Vertebral body heights are normal. There is mildly decreased disc height at L3-L4 and severely decr eased disc height at L4-L5 and L5-S1. The distal spinal cord signal intensity is normal. The conus me dullaris is at L1. There is an 11 mm hemorrhagic cyst in right kidney. The following disc levels are specifically discussed: L1-L2: The disc does not extend beyond the endplate margin. There is moderate bilateral facet joint o steoarthritis. There is no neural foraminal stenosis. There is no central canal stenosis. L2-L3: There is a left foraminal protrusion. There is mild bilateral facet joint osteoarthritis. Ther e is mild left neural foraminal stenosis. There is no central canal stenosis. L3-L4: The disc is bulging with superimposed large left subarticular zone extrusion with 11 mm inferi or extension. There is severe bilateral facet joint osteoarthritis. There is mild bilateral neural fo raminal stenosis. There is moderate central canal stenosis. There is severe stenosis of left lateral recess. L4-L5: This is bulging and has an annular fissure. There is severe bilateral facet joint osteoarthrit is. There is moderate right and mild left neural foraminal stenosis. There is mild central canal sten osis. L5-S1: The disc is bulging and has an annular fissure. There is mild bilateral facet joint osteoarthr itis. There is moderate bilateral neural foraminal stenosis. There is mild central canal stenosis. IMPRESSION: 1. Severe lumbar spondylosis. Of note, a large extrusion at L3-L4 causes moderate central canal steno sis and severe stenosis of left lateral recess. 2. Lumbar levoscoliosis. Reviewed, dictated and finalized at location E. IMPRESSION: 1. Severe lumbar spondylosis. Of note, a large extrusion at L3-L4 causes modera te central canal stenosis and severe stenosis of left lateral recess. 2. Lumbar levoscoliosis.
== END ==
PROVIDERS: PCP Internal Medicine; Referring Provider Orthopaedic Surgery; Visit Provider Nurse Practitioner
DX: M54.42 Lumbago with sciatica, left side (principal); M43.06 Spondylolysis, lumbar region; M41.86 Other forms of scoliosis, lumbar region
CPT/HCPCS: 72148

== ENCOUNTER 2023-10-22 00:26 | Day surgery (SDC) | payer OTHER, SELFPAY ==
[2023-10-08 09:58] VITALS: BMI 28.5
--- NOTE | 2023-10-08 10:39 | PC.NURSE ---
Report to the Outpatient Waiting Room, entrance under the green pavilion located off [facility], at time __0600 on date __10/22/23 . Planned Procedure Time: _0730 . Time changes happen often and if your time is changed the preop area will call you the afternoon before. - You and your visitor will be asked to self-screen and do not enter if you have any COVID symptoms. - A mask is optional within the hospital at this time. Patients may have clear liquids (water, carbonated beverages, clear teas, apple juice) until 3 hours prior to surgery with a maximum of 20 ounces. - No food from midnight until time of surgery Take the following medications with a SIP of water the morning of surgery: ___Bupropion, propanolol, duloxetine, and Qvar Inhailer____ DO NOT STOP ANY OF YOUR OTHER PRESCRIPTION MEDICATIONS PRIOR TO SURGERY ?EXCEPT THE FOLLOWING Medications to discontinue per physician ____Vitamins 3 days prior, Patient is going to call office to see when to stop celebrex__ Please no make-up, nail pitcairn islander, hairspray, perfume, deodorant, or body powder the day of surgery. No jewelry (including any body piercings) or valuables the day of surgery, leave them at home. Please take a shower or bath the night before, or the morning of, surgery with an antibacterial soap. Wear comfortable, loose fitting clothing. Children are encouraged to wear pajamas. - Jewelry must be removed prior to entering the operating room. Rings and piercings that are not removed may be cut off. - The hospital will not accept responsibility for valuables. - Please leave all valuables, including medications, at home the day of surgery. If you are going home after surgery, a licensed driver education road instructor must drive you home. - NO public transportation without another adult if you receive anesthesia. - We recommend that an adult stay with you for 24 hours following discharge. - We also recommend that you do not drive, make important decision, drink alcoholic beverages, or take any drugs that were not prescribed by your health care provider for at least 24 hours after your discharge time. Follow any additional instructions given to you from your surgeon. If you or anyone in your household have experienced Covid symptoms in the past week, please notify your surgeon or the nurse liaison at the phone number below for possible testing. Telephone instructions given to __ Delmi Cash___and asked if any additional questions and then verbalized understanding. Patient advised to call surgeon office or pre surgery nurse liaison [phone] if any additional questions.
[2023-10-22] VITALS (12 sets, daily range): BP systolic 107–133; BP diastolic 54–88; PULSE 80–96; RESP 12–20; TEMP 36.1–36.6; O2SAT 97–100
--- NOTE | ~2023-10-22 | XR_ITS ---
EXAMINATION: XR fluoroscopy no charge DATE: 10/22/2023 10:08 INDICATION: Lumbar disc herniation with radiculopathy. TECHNIQUE: A single intraoperative fluoroscopic view of the lumbar spine was obtained. I was not pres ent. Fluoroscopy exposure time was 4 seconds. COMPARISON: Lumbar spine MRI 08/14/2023 FINDINGS: There is severe lumbar spondylosis. An instrument overlies the L3-L4 disc. IMPRESSION: 1. Severe lumbar spondylosis. Reviewed, dictated and finalized at location A. [employer]
[2023-10-22] MEDS: LACTATED RINGERS 1,000 ML 30 ML IV CONT ×2 (06:45→10:07)
[2023-10-22 07:11] LABS: Partial Thromboplastin Time 26.8 SECONDS (22.3-36.8)
--- NOTE | 2023-10-22 07:14 | WPDANESEPPF ---
Anes - Initial Pre Proc Eval Procedure: Operation Date: 10/22/23 07:30 Proposed Procedures p Left L3-4 Microdiscectomy - Xenia Beckman MD Date/Time: 10/22/23 07:14 Surgeon: Xenia Beckman MD Pre Op Diagnosis: Lumbar disc herniation with Radiculopathy Patient Data Age: 63 Gender: F Height: 1.7 m Weight: 86.4 kg Last Vital Signs Temp 97.9 F 10/22/23 06:23 Pulse 81 10/22/23 06:23 Resp 20 10/22/23 06:23 BP 121/74 10/22/23 06:23 Pulse Ox 98 10/22/23 06:23 O2 Del Method Room Air 10/22/23 06:23 Allergies Allergy/AdvReac Type Severity Reaction Status Date / Time No Known Allergies Allergy Verified 10/22/23 06:20 Home Medications Medication Instructions Recorded Confirmed Type atorvastatin 20 mg tablet 10 mg PO HS 02/27/22 10/22/23 History bupropion HCl 300 mg 24 hr tablet, 300 mg PO QAM 02/27/22 10/22/23 History extended release cholecalciferol (vitamin D3) 50 50 mcg PO DAILY 02/27/22 10/22/23 History mcg (2,000 unit) tablet meclizine 25 mg tablet 25 mg PO PRN PRN Dizziness 02/27/22 10/08/23 History montelukast 10 mg tablet 10 mg PO DAILY 02/27/22 10/22/23 History omeprazole 40 mg capsule,delayed 40 mg PO DAILY 02/27/22 10/22/23 History release propranolol 20 mg tablet 20 mg PO TID TREMORS 02/27/22 10/22/23 History trazodone 150 mg tablet 150 mg PO HS 02/27/22 10/22/23 History cetirizine 10 mg capsule (Zyrtec) 10 mg PO DAILY 06/21/22 10/22/23 History acetaminophen 325 mg tablet (Mapap 650 mg PO DAILY PRN Pain 09/17/23 10/22/23 History (acetaminophen)) celecoxib 100 mg capsule (Celebrex) 200 mg PO DAILY@0800 09/17/23 10/22/23 History beclomethasone dipropionate 40 40 mcg inhalation BID 10/08/23 10/22/23 History mcg/actuation aerosol inhaler duloxetine 60 mg capsule,delayed 60 mg PO DAILY 10/08/23 10/22/23 History release omega-3 fatty acids 2,000 mg PO DAILY 10/22/23 10/22/23 History vitamin E 1,000 unit tablet 1 tablet PO HS 10/22/23 10/22/23 History Laboratory Tests 10/22/23 06:46 APTT 26.8 SECONDS (22.3-36.8) Patient hx anesthesia problems: none Family hx anesthesia problems: none Results Review: All pre-operative results and documents have been reviewed as part of the pre-operative evaluation. FOR[facility]LY [facility] Past Medical History Medical History Asthma Fatty liver GERD (gastroesophageal reflux disease) Hyperlipidemia Obesity Surgical History Surgical History H/O arthroscopic knee surgery History of shoulder surgery Family History Family History Father Alcoholism Cancer Mother Asthma Cancer Cerebrovascular accident Thyroid disorder Sibling Asthma Cancer Depression Social History Social History Smoking packs per day: 0.25 Smoking cigarettes per day: 5.0 Years smoked: 15 Smoking pack-years: 3.75 Smoking status: Former smoker Tobacco type: cigarettes Smoking end date: 10/13/18 Additional smoking assessment comments: Social smoker Alcohol intake: current Substance use: never Lack of Transportation: No Lack of Food: Never True Current Housing: I Do Not Have Housing Concerned About Future Housing: No Difficulty Paying Gas/Electric Bills: No Difficulty Paying for Meds: No Currently Unemployed: No Education: Master's Degree or Higher Difficulty w/ Childcare or Family Care: No Living arrangements: alone Gender identity (if verbalized by the patient): Female Sexual Orientation (if Verbalized by the Patient): Straight or Heterosexual Spiritual care concerns: No Anes - Eval Final PreProcedure Day of Procedure 10/22/23 07:14 Patient weight: obese Heart: regular rate and rhythm Lungs: clear to auscultation Airway: Mallampati scale class II
--- NOTE | 2023-10-22 07:17 | WPDHPUPDATE1 ---
History and Physical Update Update Date/Time: 10/22/23 07:17 History and Physical has been reviewed, including an updated exam of the patient. There are NO changes in the patient's condition. Risks, benefits, and alternatives have been discussed and questions answered. Patient agrees to proceed with procedure.
[2023-10-22] MEDS: ceFAZolin 2 GM/D5W 50 ML 2 GM/50 ML BAG IVPB (07:30)
[2023-10-22] MEDS: BUPIVACAINE/EPINEPHRINE 0.5% 30 ML VIAL INFILTRATE (08:17)
--- NOTE | 2023-10-22 10:06 | P.OPB_ITS ---
Procedure Note - Brief Procedure Note - Brief Date of procedure: 10/22/23 Lumbar disc herniation with Radiculopathy Post-op diagnosis: Same Procedure performed: Left L3-4 microdiskectomy Use of microscope Use of fluoroscopy Surgeon: Xenia Beckman MD Drilling Field Professional: Robert Anesthesia: GETA Findings: Multiple fragments of disc removed piecemeal Estimated blood loss (mL): 200 Drains: No Packing: No Pathology: None sent Complications: None Condition: Stable Disposition: PACU
[2023-10-22] MEDS: fentaNYL CITRATE INJ (*CRX) 100 MCG/2 ML VIAL 25 MCG IV PUSH ×3 (10:53→11:37)
[2023-10-22] MEDS: CYCLOBENZAPRINE HCL 10 MG TABLET PO (11:54)
[2023-10-22] MEDS: oxyCODONE HCL (*CRX) 5 MG TAB IR PO (12:10)
--- NOTE | 2023-10-22 12:27 | SUR.PHASEII ---
1200 DR. MILTON CALLED RE: PATIENT'S WORSENING SEVERE/SHARP PAIN FROM LOWER BACK TO KNEE ON ANTERIOR AND MEDIAL ASPECT OF LEFT THIGH. DR. MILTON SUGGESTED I CALL DR. JAY; DR. JAY ORDERED DECADRON, FLEXERIL AND OXYCODONE BE GIVEN. 1215 PATIENT STATES PAIN IS MUCH BETTER NOW.
--- NOTE | 2023-10-22 14:40 | P.OP_ITS ---
Procedure Note - Detailed Date of Procedure 10/22/23 Pre-op Diagnosis Lumbar disc herniation with Radiculopathy Post-op Diagnosis Same Procedure Performed 1. Left L3-4 microdiskectomy 2. Use of microscope for microsurgical dissection 3. Use of C-arm for fluoroscopy Surgeon Xenia Beckman MD Clerk Stenographer Robert Anesthesia General Indications Ms. Cash is a 63-year-old female with history of left-sided lower back and anterior thigh pain since May 13 which has only been modestly improved with physical therapy, bed rest, and oral steroids.? She does have some loss of sensation to light touch in the lateral aspect of her left leg.? MRI lumbar spine shows a large caudally migrated disc herniation on the left-sided L3-4 causing severe central stenosis.?She presented today for surgery in the form of left L3-4 microdiskectomy. Risks including bleeding, pain, infection, CSF leak, nerve damage, weakness, paresthesias, and anesthesia complications were discussed. The patient provided written informed consent to proceed. Description of Procedure The patient was brought to the operating room, and general anesthesia was induced. The patient was placed prone on the Chintan frame, and all pressure points were padded. Compression devices were placed on the patient's calves. The skin was cleaned with alcohol. The C-arm was brought onto the field to localize the appropriate disc space and assist with incisional planning. The area was prepped and draped in usual sterile fashion. A time out was conducted, and pre- operative antibiotics were administered. Local anesthesia was injected into the planned incision. A skin incision was made with a 10-blade scalpel, and dissection was carried down with the monopolar cautery to open the fascia. The left lamina of L3 was exposed with the bovie. An upgoing curette was placed under the lamina, and the C-arm was brought in to confirm the correct level. A self-retaining retractor was placed. The currette was used to clear the space under the lamina. A laminotomy was made using the Kerrison rongeurs and high-speed drill. The ligamentum flavum was opened with a currette and removed with Kerrisons. A Woodsen was used to locate the L3-4 foramen, and this was also opened with Kerrisons until it was felt to be adequately decompressed. The dura was identified and retracted medially. Epidural bleeding was controlled with the bipolar and surgiflo. A second xray was obtained to verify that we were at the L3-4 disc space. A nerve hook was used to remove multiple fragments of disc material from the ventral epidural space. A Javier was used to remove any other free disc fragments from the L3-4 disc space. We used to Woodsen to ensure that the nerve and central dura felt well compressed. The area was copiously irrigated. No evidence of CSF leak was noted. Bleeding was controlled with the bipolar and surgiflo. The fascia was closed with 0- Vicryl in an interrupted fashion. The soft tissue was again copiously irrigated. The dermis was closed with 2-0 and 3-0 interrupted Vicryl. The skin was closed with 4-0 monocryl then dermabond. The patient was returned supine on the stretcher, extubated, and transferred to PACU without incident. Billing codes: 03571, [id number] Estimated Blood Loss 200 Drains No Packing No Pathology None sent Complications None Condition Stable Disposition PACU [facility] Billing Surgery - Charge Forward: Surgery Billing
== END 2023-10-22 13:04 | disposition home or self-care (01) ==
PROVIDERS: PCP Internal Medicine; Visit Provider Neurological Surgery
PROC: (CPT 63030; principal; 2023-10-22 07:30)
DX: M51.16 Intervertebral disc disorders with radiculopathy, lumbar region (principal); J45.909 Unspecified asthma, uncomplicated; E78.5 Hyperlipidemia, unspecified; K21.9 Gastro-esophageal reflux disease without esophagitis; K76.0 Fatty (change of) liver, not elsewhere classified; E66.9 Obesity, unspecified; Z68.29 Body mass index [BMI] 29.0-29.9, adult; Z79.51 Long term (current) use of inhaled steroids; Z87.891 Personal history of nicotine dependence
CPT/HCPCS: 63030; 36415; 85730; 99199; A9270; J0690; J1100; J1170; J2250; J2405; J2704; J3010; J7120

== ENCOUNTER 2024-03-26 14:00 | Outpatient (CLI) | payer OTHER, SELFPAY ==
--- NOTE | ~2024-03-26 | MR_ITS ---
EXAMINATION: MR hip LT wo/w con DATE: 03/26/2024 15:26 INDICATION: Left hip pain. TECHNIQUE: Magnetic resonance imaging (MRI) of the left hip was performed without and with 17 mL Mult iHance intravenous contrast. COMPARISON: None FINDINGS: Bones/cartilage: There is lumbar levoscoliosis and severe spondylosis. The lungs demonstrate tiny osteophytes. Small f dugh-pe-lsyw images of the left hip demonstrates partial-thickness cartilage loss. Labrum: There is a tear of left acetabular labrum. Fluid: There is no hip joint effusion. There is mild bilateral trochanteric bursitis. Soft tissues: The iliopsoas tendons are normal. There is mild tendinopathy of the hamstring origins bilaterally. Th ere is mild tendinopathy of the gluteus minimus tendinous. The gluteus medius tendons are normal. IMPRESSION: 1. Mild osteoarthritis of the hips. 2. Tear of left acetabular labrum. Reviewed, dictated and finalized at location E.
--- NOTE | ~2024-03-26 | MR_ITS ---
EXAMINATION: MR lumbar spine wo/w con DATE: 03/26/2024 15:26 INDICATION: Other specified postprocedural states. Low back pain. Left hip and thigh pain. TECHNIQUE: Magnetic resonance imaging (MRI) of the lumbar spine was performed without and with 17 mL MultiHance intravenous contrast. COMPARISON: Lumbar spine MRI 08/14/2023 FINDINGS: There is 11 degrees levoscoliosis of lumbar spine. Vertebral body heights are normal. There is moderately decreased disc height at L3-L4 and severely decreased disc height at L4-L5 and L5-S1. The distal spinal cord signal intensity is normal. The conus medullaris is at L1-L2. The following di sc levels are specifically discussed: L1-L2: The disc does not extend beyond the endplate margin. There is mild bilateral facet joint osteo arthritis. There is no neural foraminal stenosis. There is no central canal stenosis. L2-L3: The disc does not extend beyond the endplate margin. There is mild bilateral facet joint osteo arthritis. There is no neural foraminal stenosis. There is no central canal stenosis. L3-L4: The disc is bulging and has an annular fissure. There is severe bilateral facet joint osteoart hritis. There is mild bilateral neural foraminal stenosis. There is mild central canal stenosis. Ther e is posterior decompression. L4-L5: The disc is bulging and has an annular fissure. There is severe right and moderate left facet joint osteoarthritis. There is mild bilateral neural foraminal stenosis. There is mild central canal stenosis. L5-S1: The disc is bulging and has an annular fissure. There is moderate bilateral facet joint osteoa rthritis. There is moderate bilateral neural foraminal stenosis. There is mild central canal stenosis . IMPRESSION: 1. Severe lumbar spondylosis with interval improvement at L3-L4. 2. Lumbar levoscoliosis. Reviewed, dictated and finalized at location E.
== END 2024-03-26 14:01 ==
PROVIDERS: PCP Neurological Surgery; Visit Provider Neurological Surgery
DX: R20.2 Paresthesia of skin (principal); M25.552 Pain in left hip; Z98.890 Other specified postprocedural states; M16.0 Bilateral primary osteoarthritis of hip; S73.192A Other sprain of left hip, initial encounter; M43.06 Spondylolysis, lumbar region; M41.86 Other forms of scoliosis, lumbar region
CPT/HCPCS: 72158; 73723; A9577

== ENCOUNTER 2024-05-28 13:55 | Outpatient (CLI) | payer OTHER, SELFPAY ==
--- NOTE | ~2024-05-28 | MM_ITS ---
EXAMINATION: MM screening mere BI w felipe HISTORY: Screening TECHNIQUE: Craniocaudal and mediolateral oblique 3-D tomosynthesis images were obtained and synthetic 2-D images were generated. CAD analysis was submitted and interpreted. COMPARISON: Comparison to multiple prior studies sequentially, with oldest reviewed study dated 11/04. BREAST PARENCHYMAL COMPOSITION: Not dense: There are scattered areas of fibroglandular density. FINDINGS: There is no evidence of suspicious mass, calcification, or architectural distortion to sugg est malignancy in either breast. There has been no suspicious interval change. IMPRESSION: 1. No mammographic evidence of malignancy. 2. Recommend routine screening mammography in one year. BI-RADS Category 1: Negative Reviewed, dictated and finalized at location B.
== END 2024-05-28 13:56 | disposition home or self-care (01) ==
LOC: CHSIMG 13:59
PROVIDERS: PCP Internal Medicine
DX: Z12.31 Encounter for screening mammogram for malignant neoplasm of breast (principal)
CPT/HCPCS: 77063; 77067

== ENCOUNTER 2025-02-24 10:53 | Outpatient (CLI) | payer OTHER, SELFPAY ==
--- NOTE | ~2025-02-24 | MR_ITS ---
MRI of the right shoulder Technique: Axial proton-density fat-sat images, coronal proton density fat-sat and T2 fat-sat images, and sagittal T1-weighted and T2 fat-sat images were acquired. Clinical History: Pain Findings: There is moderate AC joint degenerative change abutting productive change about the joint. Coracoclavicular, coracoacromial, and coracohumeral ligaments are intact. There is full-thickness tear involving essentially the entire supraspinatus tendon. Infraspinatus ten don appears to be intact with moderate to advanced tendinosis. Fluid-filled supraspinatus tear measur es approximately 3.0 x 2.9 cm in extent. Subscapularis tendon is intact with moderate tendinosis. The re is complete rupture of the long head biceps tendon which is retracted into the upper arm beyond th e [id number]. No definite labral tear identified. Inferior glenohumeral ligament is intact. There is moderate to large glenohumeral joint effusion with fluid passing through the rotator cuff defect into the subacromial/subdeltoid bursa. There is also f luid distention of the subscapularis recess. No muscle atrophy or edema evident. No degenerative abreu ge of the glenohumeral joint. Impression: Complete full-thickness tear of the supraspinatus tendon, as detailed above. Complete rupture of the proximal long head biceps tendon which is retracted into the upper arm. Moderate AC joint degenerative change. Moderate to large glenohumeral joint effusion, as detailed above. Reviewed, dictated and finalized at [facility]. Impression: Complete full-thickness tear of the supraspinatus tendon, as detailed above. Complete rupture of the proximal long head biceps tendon which is retracted int o the upper arm. Moderate AC joint degenerative change. Moderate to large glenohumeral joint effusion, as detailed above.
== END 2025-02-24 10:54 | disposition home or self-care (01) ==
LOC: MICIMG 10:53
PROVIDERS: PCP Internal Medicine; Visit Provider Orthopaedic Surgery
DX: S46.811A Strain of other muscles, fascia and tendons at shoulder and upper arm level, right arm, initial encounter (principal); S46.111A Strain of muscle, fascia and tendon of long head of biceps, right arm, initial encounter; M25.411 Effusion, right shoulder
CPT/HCPCS: 73221

== ENCOUNTER 2025-09-21 08:14 | Outpatient (CLI) | payer OTHER, SELFPAY ==
--- NOTE | ~2025-09-21 | MR_ITS ---
EXAM/PROCEDURE: MR foot RT wo/w con HISTORY: arthritis and neuroma COMPARISON: October 03, 2020 TECHNIQUE: Multiplanar right foot MRI with and without contrast FINDINGS: Since the previous exam, a cortical screw has been extended through the second metatarsal distal meta-epiphyseal or head region. Interval resolution of ganglion multiloculated cystic appearing lesion between the second and third metatarsal heads. There is also been interval resolution or possible removal of enhancing focus along the medial margin of the second metatarsal head. No discretely enhancing lesion or mass seen on the current study. Severe osteoarthritic appearing degenerative changes at the great toe metatarsophalangeal joint including joint space narrowing, subchondral cystic change, soft tissue fullness along the dorsal margin of the joint, and somewhat amorphous appearance of hyper enhancing synovium. Less severe osteoarthritic degenerative changes in the remainder of the metatarsophalangeal and interphalangeal joints. Moderately severe osteoarthritic changes also present throughout the mid foot including joint space narrowing, spur formation and subchondral cystic changes. No drainable fluid collection. No evidence of osteomyelitis seen. IMPRESSION: 1. No discretely enhancing lesion seen to confirm soft tissue normal. Interval resolution/removal of previously described ganglion between the second and third metatarsal heads, as well as enhancing focus between the first and second metatarsal heads with placement of cortical screw in the second metatarsal head. 2. Severe degenerative changes at the great toe MTP joint. Synovial changes may represent active inflammation; correlate clinically if patient has inflammatory arthritide. Less severe but moderately advanced degenerative changes throughout the midfoot also noted. Reviewed, dictated and finalized at location A. ONAL CARE ATTENDANT IMPRESSION: 1. No discretely enhancing lesion seen to confirm soft tissue normal. Interval resolution/removal of previously described ganglion between the second and thir d metatarsal heads, as well as enhancing focus between the first and second met atarsal heads with placement of cortical screw in the second metatarsal head. 2. Severe degenerative changes at the great toe MTP joint. Synovial changes may represent active inflammation; correlate clinically if patient has inflammator y arthritide. Less severe but moderately advanced degenerative changes througho ut the midfoot also noted.
== END 2025-09-21 08:15 | disposition home or self-care (01) ==
PROVIDERS: PCP Internal Medicine; Visit Provider Podiatrist Foot & Ankle Surgery
DX: M19.071 Primary osteoarthritis, right ankle and foot (principal); G57.61 Lesion of plantar nerve, right lower limb
CPT/HCPCS: 73720; A9577